=== PATIENT | male | born 1985 | race Caucasian/White ===

== ENCOUNTER 2024-02-06 21:36 | Emergency (ER) | payer MEDICAID ==
[~2024-02-06] VITALS: Ht 193 cm; Wt 102.0 kg
[2024-02-06 21:51] VITALS: O2SAT 100
[2024-02-06 22:22] VITALS: O2SAT 100
[2024-02-06] MEDS ORDERED: BACL-141 MT (23:50)
[2024-02-07 00:04] VITALS: BP 146/86; PULSE 60; RESP 20; TEMP 36.66960
== END 2024-02-07 00:09 | disposition home or self-care (01) ==
LOC: ER 21:36
DX: G89.29 Other chronic pain (principal); M54.50 Low back pain, unspecified; Z76.0 Encounter for issue of repeat prescription
CPT/HCPCS: 99281

== ENCOUNTER 2024-02-15 23:18 | Emergency (ER) | payer MEDICAID, OTHER ==
[~2024-02-15] VITALS: Ht 193 cm; Wt 105.0 kg
[~2024-02-15 23:18] MED LIST: BACL-141 MT
[2024-02-15 23:22] VITALS: O2SAT 100
[2024-02-15 23:51] VITALS: TEMP 98.8; O2SAT 100
[2024-02-16] MEDS ORDERED: KETOROLAC 30MG/ML VIAL IM ONE (00:45)
[2024-02-16] MEDS: LIDOCAINE 5% PATCH TOP SCH (00:45)
[2024-02-16] MEDS ORDERED: LIDO1ADH7 TP (00:46)
[2024-02-16 01:07] VITALS: BP 142/94; PULSE 60; RESP 20
[2024-02-16] MEDS: KETOROLAC 30MG/ML VIAL IM NR (01:07)
== END 2024-02-16 01:00 | disposition home or self-care (01) ==
LOC: ER 23:31
DX: G89.29 Other chronic pain (principal); M54.50 Low back pain, unspecified
CPT/HCPCS: 99283; 96372; J1885

== ENCOUNTER 2024-03-02 22:26 | Emergency (ER) | payer OTHER ==
[~2024-03-02] VITALS: Ht 193 cm; Wt 101.5 kg
[~2024-03-02 22:26] MED LIST changes: +LIDO1ADH7 TP
[2024-03-02 22:38] VITALS: O2SAT 100
[2024-03-03] MEDS ORDERED: BACL-141 MT (01:12)
[2024-03-03 02:00] VITALS: BP 139/84; PULSE 83; RESP 16; TEMP 36.66960
== END 2024-03-03 05:16 | disposition home or self-care (01) ==
LOC: ER 22:26
DX: G89.29 Other chronic pain (principal); M54.50 Low back pain, unspecified
CPT/HCPCS: 99283

== ENCOUNTER 2024-08-24 20:37 | Emergency (ER) | payer OTHER ==
[~2024-08-24] VITALS: Ht 188 cm; Wt 95.2 kg
[2024-08-24 21:03] VITALS: O2SAT 100
[2024-08-24] MEDS ORDERED: BACL-141 MT (22:39)
[2024-08-24] MEDS ORDERED: NAPR-679 MT (22:39)
[2024-08-24] MEDS ORDERED: ACET-2708 MT (22:39)
[2024-08-24] MEDS: LIDOCAINE 5% PATCH TOP SCH (22:45)
[2024-08-24] MEDS: KETOROLAC 30MG/ML VIAL IM ONE (22:57)
[2024-08-24] MEDS: BACLOFEN 10MG TABLET PO ONE (22:57)
[2024-08-24] MEDS: ACETAMINOPHEN 325MG TABLET PO ONE (22:57)
[2024-08-24 22:58] VITALS: BP 167/103; PULSE 54; RESP 18; TEMP 36.9; O2SAT 100
== END 2024-08-24 23:01 | disposition home or self-care (01) ==
LOC: ER 20:37
DX: G89.29 Other chronic pain (principal); M54.9 Dorsalgia, unspecified; Z79.1 Long term (current) use of non-steroidal anti-inflammatories (NSAID)
CPT/HCPCS: 99283; 96372; J1885

== ENCOUNTER 2024-09-14 18:17 | Emergency (ER) | payer OTHER ==
[~2024-09-14] VITALS: Ht 193 cm; Wt 99.0 kg
[~2024-09-14 18:17] MED LIST changes: +ACET-2708 MT; +NAPR-679 MT
[2024-09-14 18:33] VITALS: O2SAT 100
[2024-09-14] MEDS: BACLOFEN 10MG TABLET PO ONE (19:07)
[2024-09-14] MEDS: KETOROLAC 30MG/ML VIAL IM STA (19:07)
[2024-09-14] MEDS ORDERED: BACL-141 MT (19:18)
[2024-09-14] MEDS ORDERED: ACET-2708 MT (19:18)
[2024-09-14] MEDS ORDERED: NAPR-679 MT (19:18)
[2024-09-14 19:36] VITALS: BP 149/95; PULSE 56; RESP 18; TEMP 36.8; O2SAT 100
== END 2024-09-14 19:36 | disposition home or self-care (01) ==
LOC: ER 18:17
DX: G89.29 Other chronic pain (principal); M54.9 Dorsalgia, unspecified; Z59.71 Insufficient health insurance coverage; Z79.1 Long term (current) use of non-steroidal anti-inflammatories (NSAID)
CPT/HCPCS: 99283; J1885

== ENCOUNTER 2024-11-11 16:52 | Emergency (ER) | payer OTHER ==
[~2024-11-11] VITALS: Ht 193 cm; Wt 99.0 kg
[2024-11-11 17:09] VITALS: TEMP 36.8; O2SAT 99
[2024-11-11] MEDS ORDERED: CYCL10TA21 MT (18:17)
[2024-11-11] MEDS ORDERED: NAPR-1495 MT (18:17)
[2024-11-11 18:39] VITALS: BP 150/90; PULSE 100; RESP 18; O2SAT 100
== END 2024-11-11 18:40 | disposition home or self-care (01) ==
LOC: ER 16:52
DX: G89.29 Other chronic pain (principal); M54.50 Low back pain, unspecified; Z79.1 Long term (current) use of non-steroidal anti-inflammatories (NSAID); Z79.899 Other long term (current) drug therapy
CPT/HCPCS: 99283

== ENCOUNTER 2024-11-18 20:57 | Emergency (ER) | payer OTHER ==
[~2024-11-18] VITALS: Ht 193 cm; Wt 105.0 kg
[~2024-11-18 20:57] MED LIST changes: +CYCL10TA21 MT; +NAPR-1495 MT
[2024-11-18 21:22] VITALS: O2SAT 99
[2024-11-18] MEDS: CYCLOBENZAPRINE 10MG TABLET PO ONE (22:07)
[2024-11-18] MEDS: LIDOCAINE 5% PATCH TOP SCH (22:07)
[2024-11-18] MEDS: KETOROLAC 30MG/ML VIAL IM ONE (22:07)
[2024-11-18] MEDS ORDERED: KETO10TA2 MT (23:11)
[2024-11-18] MEDS ORDERED: BACL20TA MT (23:11)
[2024-11-18] MEDS ORDERED: LIDO-53 TP (23:11)
[2024-11-18 23:33] VITALS: BP 144/98; PULSE 61; RESP 18; TEMP 36.8; O2SAT 99
== END 2024-11-18 23:40 | disposition home or self-care (01) ==
LOC: ER 20:57
DX: G89.29 Other chronic pain (principal); M25.552 Pain in left hip; M54.2 Cervicalgia; Z79.1 Long term (current) use of non-steroidal anti-inflammatories (NSAID); Z79.899 Other long term (current) drug therapy
CPT/HCPCS: 99283; 96372; J1885